=== PATIENT | male | born 1985 | race Caucasian/White ===

== ENCOUNTER 2016-11-07 08:13 | Emergency (ER) | payer OTHER ==
[2016-11-07 08:25] VITALS: BP 149/95; PULSE 96; RESP 16; TEMP 99.9; O2SAT 98
--- NOTE | 2016-11-07 08:42 | UCPHY ---
H & P Time Seen by Provider: 11/07/16 08:25 Patient Type: New HPI/ROS: This patient presents with a chief complaint of cough and sore throat and has been ill for 3 days. He believes that he may have had a fever and he thinks that he has also had some shortness of breath but denies chest pain nasal congestion or ear pain. He has a headache and myalgias. REVIEW OF SYSTEMS: Constitutional: Malaise, subjective fever Eyes: No complaints ENT: Sore throat and painful swallowing, no ear pain no nasal congestion Respiratory: Cough, questionable shortness of breath Cardiac: No chest pain Gastrointestinal: Not addressed Genitourinary: Not addressed Musculoskeletal: Myalgias Skin: No rash Neurological: Headache Smoking Status: Never smoked Physical Exam: GENERAL: Well-appearing, well-nourished and in no acute distress. He does appear to be acutely ill but not toxic HEAD: Atraumatic, normocephalic. EYES: sclera anicteric, conjunctiva are normal. ENT: TMs normal, nares patent, there is lymphoid hyperplasia and erythema present but no exudates. NECK: Normal range of motion, supple without lymphadenopathy or JVD. LUNGS: Breath sounds clear to auscultation bilaterally and equal. No wheezes rales or rhonchi. HEART: Regular rate and rhythm EXTREMITIES: Normal range of motion, NEUROLOGICAL: Cranial nerves II through XII grossly intact. Normal speech, normal gait. PSYCH: Normal mood, normal affect. SKIN: Warm, dry, normal turgor, no visible rashes or lesions. Constitutional: Initial Vital Signs Temperature (C) 37.7 C 11/07/16 08:16 Heart Rate 96 11/07/16 08:16 Respiratory Rate 16 11/07/16 08:16 Blood Pressure 149/95 H 11/07/16 08:16 O2 Sat (%) 98 11/07/16 08:16 O2 Delivery Mode Room Air Allergies/Adverse Reactions: No Known Allergies Allergy (Unverified 11/07/16 08:25) Home Medications: Medication Instructions Recorded AZITHROMYCIN [Z-PACK] 250 mg PO DAILY #1 packet 11/07/16 Albuterol [Albuterol HFA 8 gm] 2 puffs IH QID #1 mdi 11/07/16 HYDROcodone/HOMATROPINE HYCODA 1 tsp PO Q4-6PRN PRN #120 ml 11/07/16 [Hycodan Syrup (RX)] Medical Decision Making ED Course/Re-evaluation: I suggested that we obtain a chest x-ray however the patient was concerned about the costs involved. He requested a prescription for a Z-Gui and because of his symptoms associated with a fever I acquiesced. Differential Diagnosis: This patient most likely has a viral syndrome however I am concerned that he has no nasal congestion and he does have a fever. He declined a chest x-ray and therefore I am unable to exclude pneumonia. - Data Points Laboratory Results: 11/07/16 08:27 Group A Strep Screen Pending Departure - Departure Disposition: Home, Routine, Self-Care Clinical Impression: Acute bronchitis Qualifiers: Bronchitis organism: unspecified organism Qualified Code(s): J20.9 - Acute bronchitis, unspecified Condition: Good Instructions: Acute Bronchitis (ED), Pharyngitis (ED) Additional Instructions: If her symptoms have not improved in 2 or 3 days or if symptoms have not resolved in 6 or 7 days you should be re-evaluated. If you develop chest pain or increased shortness of breath you should be seen immediately. A fever greater than 101 degrees would also be of concern Adult Pain & Fever Control: We recommend Acetaminophen (Tylenol) and Ibuprofen (Motrin, Advil) for pain and fever control. When fever is high or pain severe, both drugs can be used at the same time, but at different intervals. Please note the time differences. Your dose is: Acetaminophen [650]mg every 4 to 6 hours ibuprofen [600]mg every [6] hours with food OR naproxen Sodium (Aleve) [440]mg every 12 hours. Note: do not take Acetaminophen with Hydrocodone (Vicodin, Lortab) or Oxycodone (Percocet). These medications also contain Acetaminophen. No more than 3000 mg of Acetaminophen should be taken in 24 hours (for an adult) . The maximal dose of ibuprofen that it is safe in a 24-hour period is 2400 mg. You may take 400 mg every 4 hours, 600 mg every 6 hours or 800 mg every 8 hours safely. Prescriptions: Albuterol [Albuterol HFA 8 gm] 2 puffs IH QID #1 mdi AZITHROMYCIN [Z-PACK] 250 mg PO DAILY #1 packet HYDROcodone/HOMATROPINE HYCODA [Hycodan Syrup (RX)] 1 tsp PO Q4-6PRN PRN #120 ml PRN Reason: cough - PQRS PQRS Measurement: Not applicable
== END 2016-11-07 08:55 | disposition home or self-care (01) ==
LOC: CED 08:13
DX: J20.9 Acute bronchitis, unspecified (principal); R51 Headache
CPT/HCPCS: 87880-PO; 99203-PO; G0463-PO